=== PATIENT | female | born 1990 | race Caucasian/White ===

== ENCOUNTER → 2022-05-23 11:55 | Outpatient (BNVA) | payer OTHER, BC, SELFPAY | PROVIDERS: Visit Provider Family Medicine | DX: Z34.80 Encounter for supervision of other normal pregnancy, unspecified trimester (principal); Z51.81 Encounter for therapeutic drug level monitoring | CPT/HCPCS: 81000; 84443; 85025; 86592; 86762; 86803; 86850; 86900; 87340; 87491; 87591; 87624; 87806 ==

== ENCOUNTER → 2022-05-24 10:46 | Outpatient (BNVA) | payer OTHER, BC, SELFPAY | PROVIDERS: Visit Provider Family Medicine | DX: Z34.80 Encounter for supervision of other normal pregnancy, unspecified trimester (principal) | CPT/HCPCS: 87086 ==

== ENCOUNTER → 2022-05-27 15:54 | Outpatient (BNVA) | payer OTHER, SELFPAY | PROVIDERS: Visit Provider Family Medicine | DX: Z34.80 Encounter for supervision of other normal pregnancy, unspecified trimester (principal) | CPT/HCPCS: 76801 ==

== ENCOUNTER → 2022-06-17 11:05 | Outpatient (BNVA) | payer OTHER, BC, SELFPAY | PROVIDERS: PCP Family Medicine; Visit Provider Family Medicine | DX: Z34.80 Encounter for supervision of other normal pregnancy, unspecified trimester (principal) | CPT/HCPCS: 86850; 86900; 87806 ==

== ENCOUNTER → 2022-07-01 10:20 | Outpatient (BNVA) | payer OTHER, SELFPAY | PROVIDERS: PCP Family Medicine; Visit Provider Family Medicine | DX: Z34.80 Encounter for supervision of other normal pregnancy, unspecified trimester (principal) | CPT/HCPCS: 76805 ==

== ENCOUNTER → 2022-08-09 08:58 | Outpatient (BNVA) | payer OTHER, BC, SELFPAY | PROVIDERS: PCP Family Medicine; Visit Provider Family Medicine | DX: Z34.80 Encounter for supervision of other normal pregnancy, unspecified trimester (principal) | CPT/HCPCS: 82950 ==

== ENCOUNTER → 2022-08-13 08:22 | Outpatient (BNVA) | payer OTHER, BC, SELFPAY | PROVIDERS: PCP Family Medicine; Visit Provider Family Medicine | DX: O99.810 Abnormal glucose complicating pregnancy (principal); Z3A.00 Weeks of gestation of pregnancy not specified | CPT/HCPCS: 82951; 82952 ==

== ENCOUNTER → 2022-08-27 11:15 | Outpatient (BNVA) | payer OTHER, BC, SELFPAY | PROVIDERS: PCP Family Medicine; Visit Provider Family Medicine | DX: Z36.2 Encounter for other antenatal screening follow-up (principal) | CPT/HCPCS: 76816 ==

== ENCOUNTER → 2022-09-23 10:25 | Outpatient (BNVA) | payer OTHER, BC, SELFPAY | PROVIDERS: PCP Family Medicine; Visit Provider Family Medicine | DX: Z34.80 Encounter for supervision of other normal pregnancy, unspecified trimester (principal); Z51.81 Encounter for therapeutic drug level monitoring | CPT/HCPCS: 85025 ==

== ENCOUNTER → 2022-10-22 15:50 | Outpatient (BNVA) | payer OTHER, BC, SELFPAY | PROVIDERS: PCP Family Medicine; Visit Provider Family Medicine | DX: R30.0 Dysuria (principal); Z34.80 Encounter for supervision of other normal pregnancy, unspecified trimester | CPT/HCPCS: 81000; 87086 ==

== ENCOUNTER → 2022-10-28 09:33 | Outpatient (BNVA) | payer OTHER, BC, SELFPAY | PROVIDERS: PCP Family Medicine; Visit Provider Family Medicine | DX: O99.019 Anemia complicating pregnancy, unspecified trimester (principal); D64.9 Anemia, unspecified; Z51.81 Encounter for therapeutic drug level monitoring; Z3A.00 Weeks of gestation of pregnancy not specified | CPT/HCPCS: 87081 ==

== ENCOUNTER 2022-10-29 06:08 | Outpatient (CLI) | payer OTHER, BC, SELFPAY ==
--- NOTE | 2022-10-29 06:15 | US_ITS ---
WS: [id number] BIOPHYSICAL PROFILE AND LIMITED OB. HISTORY: RU/EFW/BPP - gestational DM - COMPARISON: 05/27/2022, 07/01/2022 and 08/27/2022. Presentation: Vertex. Cervix: Closed and normal length. Placenta: Anterior, no previa or abruption. Grade: 1 HEART: FHR of 136BPM. measurements: BPD = 8.8 cm = 35w4d; 53rd percentile HC = 31.7 cm = 35w4d; 17th percentile AC = 32.5 cm = 36w3d; 77th percentile FL = 7.1 cm = 36w1d; 58th percentile RU: 15.7 cm, single deep vertical pocket 6.7 cm. EFW: 2864g; 73rd percentile AGA by ultrasound: 36w0d ABBI by ultrasound: 11/26/2022 Biophysical profile: Parameters are as follows: Breathin Movement: 2 Tone: 2 Fluid volume: 2 US/US OB BPP wo NST [id number] IMPRESSION: 1. Biophysical profile score: 8/8. 2. Single intrauterine gestation of 36w0d with an EDC of 11/26/2022. Appropriate growth since the first trimester ultrasound. 3. Estimated weight at the 73rd percentile. Estimated weight on the most recent examination of 08/27/2022 was at the 29th percentile. 4. Abdominal circumference at the 77th percentile for gestational age. Most rec ent abdominal circumference measurement at the 21st percentile for age on 08/27. 5. Estimated weight and the abdominal circumference percentiles are trend ing toward a higher percentile. Recommend close continued ultrasound evaluation . 6. Normal amniotic fluid.
== END 2022-10-29 06:09 | disposition home or self-care (01) ==
LOC: RAD 06:08
PROVIDERS: PCP Family Medicine; Visit Provider Family Medicine
DX: O24.419 Gestational diabetes mellitus in pregnancy, unspecified control (principal)
CPT/HCPCS: 76815; 76819

== ENCOUNTER → 2022-11-07 12:54 | Outpatient (BNVA) | payer OTHER, BC, SELFPAY | PROVIDERS: PCP Family Medicine; Visit Provider Family Medicine | DX: Z34.80 Encounter for supervision of other normal pregnancy, unspecified trimester (principal); Z51.81 Encounter for therapeutic drug level monitoring; D64.9 Anemia, unspecified | CPT/HCPCS: 85025 ==

== ENCOUNTER 2022-11-19 07:36 | Outpatient (CLI) | payer BC, OTHER, SELFPAY ==
--- NOTE | 2022-11-19 08:00 | US_ITS ---
WS: [id number] BIOPHYSICAL PROFILE AND LIMITED OB. HISTORY: Measuring large for gestational age COMPARISON: 10/29/2022, 05/27/2022 Presentation: Vertex. Cervix: Closed and normal length. Placenta: Anterior, no previa or abruption. Grade: 1 HEART: FHR of 150BPM. measurements: BPD = 9.4 cm = 38w1d; 66 percentile HC = 33.3 cm = 38w0d; 21st percentile AC = 34.7 cm = 38w5d; 69th percentile FL = 7.6 cm = 39w0d; 51st percentile RU: 17.5 cm EFW: 3538g; 83rd percentile AGA by ultrasound: 38w3d ABBI by ultrasound: 11/30/2022 Measurements remain internally concordant. Appropriate growth since the first trimester ultrasound. Biophysical profile: Parameters are as follows: Breathin Movement: 2 Tone: 2 Fluid volume: 2 US/US OB limited [id number] IMPRESSION: 1. Biophysical profile score: 8/8. 2. Single intrauterine gestation of 38w3d with an EDC 11/30/2022. Appropriate g rowth since the first trimester ultrasound. 3. Estimated weight at the 83rd percentile for age. 4. Biometry percentiles are normal.
== END 2022-11-19 07:37 | disposition home or self-care (01) ==
LOC: RAD 07:38
PROVIDERS: PCP Family Medicine; Visit Provider Family Medicine
DX: O24.419 Gestational diabetes mellitus in pregnancy, unspecified control (principal); Z3A.38 38 weeks gestation of pregnancy
CPT/HCPCS: 76815

== ENCOUNTER 2022-11-22 06:39 | Inpatient (IN) | payer OTHER, BC, SELFPAY ==
--- NOTE | 2022-10-28 10:58 | ANES.PREANE2 ---
Pre-Anesthetic Assessment Height/Weight: Height 1.61 m Preop Diagnosis: IUP epidural Familial anesthetic complications: Wet tap d/t narrow spaces, ? intrathecal catheter left in place 2nd one seems to have been a positive test dose with HR abnormalities and ringing in ears Social No alcohol and No tobacco Exam alert, oriented x 3, clear to auscultation bilaterally and regular rate & rhythm Airway Mallampati: Class I Dentition: full Pulmonary None reported CV/HEM None reported None reported Hepatic None reported GI Gastroesophageal Reflux Disease Metabolic Diabetes Mellitus (gestational DM) Musc/skel None reported Neuropsych None reported Anesthetic Plan ASA status: 2 Anesthesia: Regional (specify below) Other: epidural Risk of > 500 ml blood loss (7ml/kg in children): Yes, adequate IV access and fluids planned Medications/Allergies Home Medications Medication Instructions Recorded Confirmed Last Taken Type prenat.vits,krytsin,evy-amrm-ygowp 1 tab PO DAILY 05/23/22 10/28/22 Unknown History ferrous sulfate 325 mg (65 mg 325 mg PO BID #60 tabs 09/27/22 10/28/22 Unknown Rx iron) tablet,delayed release Allergies Allergy/AdvReac Type Severity Reaction Status Date / Time No Known Allergies Allergy Unverified 05/23/22 11:40 FOR[facility] Anesthesia Surgical History Hx of tonsillectomy Hx of wisdom tooth extraction Social History Smoking and tobacco status: never smoked Alcohol intake: never 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
[2022-11-22] VITALS (65 sets, daily range): BP systolic 84–137; BP diastolic 51–84; PULSE 55–117; RESP 16–17; TEMP 36.6–36.9; O2SAT 100; BMI 30.8
[2022-11-22 09:15] LABS: Glucose Point of Care 63 mg/dL (70-110)
[2022-11-22 09:15] LABS: Glucose Point of Care 65 mg/dL (70-110)
[2022-11-22 09:35] LABS: Basophils % 0.1 %; Eosinophils # 0.1 10^3/uL (0.0-0.8); Eosinophils % 0.8 %; Hematocrit 35.6 % (37.0-47.0); Hemoglobin 10.6 g/dL (11.5-15.3); Lymphocytes # 1.6 10^3/uL (0.8-4.8); Lymphocytes % 21.8 %; Mean Corpuscular HGB Conc 29.8 g/dL (30.0-36.0); Mean Corpuscular Hemoglobin 26.1 pg (28.0-34.0); Mean Corpuscular Volume 87.7 fl (81-99); Mean Platelet Volume 11.1 fL (7.4-10.4); Monocytes # 0.5 10^3/uL (0.2-0.9); Neutrophils # 5.28 10^3/uL (1.8-7.7); Nucleated Red Blood Cells % 0 %; Platelet Count 173 10^3/cmm (130-400); Red Blood Count 4.06 10^6/uL (4.1-5.3); Red Cell Distribution Width 19.2 % (12.1-15.1); White Blood Count 7.5 10^3/uL (4.0-10.0)
[2022-11-22] MEDS: dextrose 5%-lactated ringers 1,000 ML 125 ML IV (09:38)
[2022-11-22] MEDS: oxytocin 30 UNIT/500 ML BAG IV (09:39)
[2022-11-22] MEDS: lactated ringers 1,000 ML 999 ML IV ×2 (10:32→17:16)
--- NOTE | 2022-11-22 11:51 | PM.HP ---
Providers/Chief Complaint Admitting Physician: Kamari Landers MD Primary Care Provider: Kamari Landers MD Chief Complaint: INDUCTION OF LABOR History of Present Illness Joesph Gonzáles is a 32 year old @ 39.1 weeks by 13 wk US consistent with estimated LMP based on conception. Preg c/b h/o gDM, h/o LGA , elevated 1-hr GTT with normal 3-hr GTT - following glucose at home - likely gDM, anemia The patient presents to labor and delivery for an elective scheduled induction of labor secondary to history of large for gestational age infant as well as borderline blood sugar levels. The patient has been feeling well. She denies any chest pains, shortness of breath, nausea, vomiting, diarrhea, constipation, fever, dysuria, leakage of fluid, vaginal bleeding. The patient is GBS negative. 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 Reproductive History: : 4 Vitals/I&O/Wt Last Vital Signs Pulse 96 11/22/22 11:48 BP 126/82 11/22/22 11:48 Pulse Ox 100 11/22/22 11:45 O2 Del Method 11/22/22 10:06 11/21/22 11/22/22 11/22/22 22:59 06:59 14:59 Intake Total 119.050 / 119.050 Balance 119.050 / 119.050 Weight last 48 hrs Weight 174 lb Physical Exam Narrative: General: Alert and oriented x3 Eyes: Pupils equal round and reactive to light and accommodation Mouth: Mucous membranes moist, pharynx non-erythematous Cardiac: Regular rate and rhythm without murmurs Lungs: Clear to auscultation bilaterally without wheezes, crackles or rhonchi Abdomen: Soft, non-tender, fundus consistent with gestational age Extremities: Trace edema in the bilateral lower extremities Data 11/22/22 09:00 A&P Assessment and plan (1) Supervision of normal intrauterine in multigravida: The patient is doing well overall at this time. She is eder every 1 to 3 minutes. She has been started on IV Pitocin for induction of labor. Her GBS is negative. heart tones are currently in the mid 130s with moderate variability good accelerations. All questions were answered. The patient is in agreement with current plan of care. Continue with routine intrapartum management. Attestations Medical Necessity Statement*: The patient will be here for greater than 2 midnights due to routine intrapartum and management of labor and delivery. Coding Level of Care Code Acute Code for Chg Fwd Diagnoses Supervision of normal intrauterine in multigravida Z34.80
--- NOTE | 2022-11-22 12:32 | P.ANESASSM_ITS ---
Pre-Anesthetic Assessment Height/Weight: Height 1.6 m Weight 78.925 kg Pulse BP Pulse Ox O2 Del Method 82 123/79 100 11/22/22 12:10 11/22/22 12:10 11/22/22 11:50 11/22/22 10:06 Preop Diagnosis: IUP Familial anesthetic complications: none Was Beta Beth taken within 24 hours: N/A Was Clonidine taken within 24 hours: N/A Social No alcohol and No tobacco Exam alert, oriented x 3, clear to auscultation bilaterally and regular rate & rhythm Airway Submandibular: within normal limits Cervical ROM: within normal limits Mallampati: Class II Dentition: full CV/HEM Anemia Metabolic Diabetes Mellitus (gestational) Anesthetic Plan ASA status: 2 Anesthesia: Regional (specify below) (Labor epidural) Medications/Allergies Home Medications Medication Instructions Recorded Confirmed Last Taken Type prenat.vits,krystin,wgk-dqzp-pvsxr 1 tab PO DAILY 05/23/22 11/20/22 Unknown History ferrous sulfate 325 mg (65 mg 325 mg PO BID #60 tabs 09/27/22 11/20/22 Unknown Rx iron) tablet,delayed release Allergies Allergy/AdvReac Type Severity Reaction Status Date / Time No Known Allergies Allergy Unverified 05/23/22 11:40 Current Medications Generic Name Dose Route Start Last Admin Trade Name Freq PRN Reason Stop Dose Admin Oxytocin 30 unit in 500 mls @ 2 mls/hr 11/22/22 09:30 11/22/22 10:55 Pitocin IV 10 milliunit/min .Q24H EDISON 10 mls/hr Titration Protocol 2 MILLIUNIT/MIN Dextrose/Lactated Ringer's 1,000 mls @ 125 mls/hr 11/22/22 09:30 11/22/22 10:33 Dextrose 5%-Lactated Ringers IV 0 mls/hr .Q8H EDISON Infusion Lactated Ringer's 1,000 mls @ 999 mls/hr 11/22/22 09:25 11/22/22 10:32 Lactated Ringers IV 999 mls/hr .Q1H1M PRN Administration See label comments PFSH Anesthesia Surgical History Hx of tonsillectomy Hx of wisdom tooth extraction Social History Smoking and tobacco status: never smoked Alcohol intake: never 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 : 4 Data Anesthesia 11/22/22 09:00 Short CBC 11/22/22 Range/Units 09:00 WBC 7.5 (4.0-10.0) 10^3/uL Hgb 10.6 L (11.5-15.3) g/dL Hct 35.6 L (37.0-47.0) % MCV 87.7 (81-99) fl Plt Count 173 (130-400) 10^3/cmm Neut % (Auto) 70.0 % Neut # (Auto) 5.28 (1.8-7.7) 10^3/uL Cardiac Studies: No Data to Display Anesthesia Procedures Epidural Time Out Performed: Yes Consents Signed: Procedure Consent Consent: requested by attending/covering physician, from patient, risks and benefits reviewed and patient agrees to proceed Lumbar Level: L3-L4 Epidural position: sitting Epidural procedure: sterile prep of area, 1% lidocaine to numb the area, 18 g needle, neg for paresthesia, test dose given (3mls of 1% lido), 0.2% Ropivacaine bolus ml, placed PCEA, no systemic response, sterile dressing applied and 0.2% Ropiavacaine @ mls/hr (13) Additional Comments: FLORES at 4cm, cath at 9cm, bolused 5mls of 0.2% rop
[2022-11-22 13:52] LABS: Glucose Point of Care 85 mg/dL (70-110)
[2022-11-22] MEDS: ePHEDrine 50 mg/mL Inj 10 MG IVP ×3 (17:24→17:48)
[2022-11-22 17:39] LABS: Glucose Point of Care 110 mg/dL (70-110)
--- NOTE | 2022-11-22 20:13 | PM.DELIVERY ---
Delivery Note: Date of delivery: November 22, 2022 Pre-delivery diagnoses: 1. Intrauterine at 39.1 weeks gestation 2. Gestational diabetes - diet-controlled 3. History of LGA infant 4. Anemia Post-delivery diagnoses: 1. Intrauterine status post spontaneous vaginal delivery at 39.1 weeks gestation 2. Gestational diabetes - diet-controlled 3. History of LGA infant 4. Anemia 5. Delivery of healthy infant female weighing 7 pounds 15 ounces with Apgars of 9 and 10 Procedure: Spontaneous vaginal delivery Delivering Physician: Kamari Landers MD Estimated blood loss (mL): 100 Findings: 1. Healthy female weighing 7 pounds 15 ounces with Apgars of 9 and 10 2. Intact placenta with central umbilical cord insertion site Pre-Delivery Course: Joesph Gonzáles is a 32 year old G4 now P4 status post spontaneous vaginal delivery @ 39.1 weeks by 13 wk US consistent with estimated LMP based on conception. Preg was complicated by history of gDM, h/o LGA infant, elevated 1-hr GTT with normal 3-hr GTT - following glucose at home - likely gDM, anemia The patient presented to labor and delivery for an elective scheduled induction of labor secondary to history of large for gestational age infant as well as borderline blood sugar levels. The patient was started on IV Pitocin on the morning of 11/22/2022. She made gradual change and received a laboring epidural. The patient's blood sugars were in the normal range throughout her labor process. Following her epidural, she did have a couple of episodes of low blood pressure that were treated with ephedrine. The epidural was turned down and she responded well to this. By the afternoon of 11/22/2022, the 's head was well applied and at 1906 on 11/22/2022 AROM was performed. Clear fluid was noted. The patient then made more rapid change and was complete by 1950 on 11/22/2022. Delivery: The patient began pushing at 1951 on 11/22/2022. The patient pushed well and the infant delivered in the OA position at 1956 on 11/22/2022. There was a nuchal cord that was reduced prior to delivery of the rest of the infant. The left shoulder was the anterior shoulder and it delivered with ease. The rest of the infant delivered without complication. The 's mouth and nose were bulb suctioned by myself and the infant was placed on the mother's chest where the nurses were waiting to care for her. The cord was clamped by myself after approximately 1 minute. Cord blood was obtained. The cord was then drained of blood. Traction was placed on the umbilical cord and the uterus was massaged. The placenta delivered at 20:01. The placenta was noted to be intact with a central umbilical cord insertion site. The uterus was massaged and was noted to be firm and midline. The vaginal wall was inspected and no lacerations were noted. There was a small abrasion noted in the lower vaginal wall. This did not need suturing. The cervix was inspected and no lacerations were noted. Currently both the mother and infant are doing well. History History History 4 Term 4 0 Miscarriages/Ectopic 0 Living Children 4 Past Pregnancies Del. Date GA/Weeks Outcome Route Wt Inf Gender Labor Lgth Comp. Anesthesia Location 05/25/14 39 live - full term Vaginal 9 lb 2 oz Male [address] [facility] [place] 06/05/17 39 live - full term Vaginal 8 lb 2 oz Male 8 hours [facility] 04/21/20 39 live - full term Vaginal 8 lb 4 oz Male 6-8 hours [facility] [place] 11/22/22 39 live - full term Vaginal 7 lb 15 oz [facility] Delivery Date: 05/25/14 Last Updated by: Kamari Landers MD GDM - diet controlled, OP initially. Delivery Date: 06/05/17 Last Updated by: Kamari Landers MD No complications Delivery Date: 04/21/20 Last Updated by: Kamari Landers MD gDM - diet controlled A&P Assessment and plan (1) Spontaneous vaginal delivery: Coding Level of Care Code Acute Code for Chg Fwd Diagnoses Spontaneous vaginal delivery O80
[2022-11-22] MEDS: oxytocin 30 UNIT/500 ML BAG 60 UNIT IV (20:55)
[2022-11-23] VITALS (11 sets, daily range): BP systolic 108–133; BP diastolic 56–83; PULSE 83–103; RESP 16; TEMP 36.1–36.9; O2SAT 97
[2022-11-23] MEDS: docusate sodium 100 mg Capsule PO ×2 (08:19→20:40)
[2022-11-23] MEDS: prenatal vitamin Capsule 1 CAP PO (08:19)
[2022-11-23] MEDS: ibuprofen 800 mg tablet PO ×3 (08:20→20:40)
[2022-11-23 09:24] LABS: Hematocrit 33.9 % (37.0-47.0); Hemoglobin 10.1 g/dL (11.5-15.3); Mean Corpuscular HGB Conc 29.8 g/dL (30.0-36.0); Mean Corpuscular Hemoglobin 26.2 pg (28.0-34.0); Mean Corpuscular Volume 87.8 fl (81-99); Mean Platelet Volume 11.1 fL (7.4-10.4); Platelet Count 159 10^3/cmm (130-400); Red Blood Count 3.86 10^6/uL (4.1-5.3); Red Cell Distribution Width 19.2 % (12.1-15.1)
--- NOTE | 2022-11-23 15:36 | PM.DCS ---
Discharge Providers Date of Admission: 11/22/22 06:39 Date of Discharge: November 23, 2022 Attending Provider at Admission: Kamari Landers MD Attending Provider at Discharge: Kamari Landers MD Primary Care Provider: Kamari Landers MD Diagnoses at Discharge Discharge Diagnosis (1) Spontaneous vaginal delivery: Status: Acute Other Information Additional DC diagnoses/information: 1.? Intrauterine status post spontaneous vaginal delivery at 39.1 weeks gestation 2.? Gestational diabetes - diet-controlled 3.? History of LGA 4.? Anemia 5.? Delivery of healthy female weighing 7 pounds 15 ounces with Apgars of 9 and 10? Reason for Visit Reason for Visit: INDUCTION OF LABOR Brief History: Joesph Gonzáles is a 32 year old G4 now P4 status post spontaneous vaginal delivery @ 39.1 weeks by 13 wk US consistent with estimated LMP based on conception. Preg was complicated by history of gDM, h/o LGA , elevated 1-hr GTT with normal 3-hr GTT - following glucose at home - likely gDM, anemia The patient presented to labor and delivery for an elective scheduled induction of labor secondary to history of large for gestational age as well as borderline blood sugar levels. Hospital Course Hospital Course The patient was started on IV Pitocin on the morning of 11/22/2022.? She made gradual change and received a laboring epidural.? The patient's blood sugars were in the normal range throughout her labor process.? Following her epidural, she did have a couple of episodes of low blood pressure that were treated with ephedrine.? The epidural was turned down and she responded well to this.? By the afternoon of 11/22/2022, the infant's head was well applied and at 190 on 11/22/2022 AROM was performed.? Clear fluid was noted.? The patient then made more rapid change and was complete by 1950 on 11/22/2022. The patient began pushing at 1951 on 11/22/2022.? The patient pushed well and the infant delivered in the OA position at 1956 on 11/22/2022.? There was a nuchal cord that was reduced prior to delivery of the rest of the .? The left shoulder was the anterior shoulder and it delivered with ease.? The rest of the delivered without complication.? The infant's mouth and nose were bulb suctioned by myself and the infant was placed on the mother's chest where the nurses were waiting to care for her.? The cord was clamped by myself after approximately 1 minute.? Cord blood was obtained.? The cord was then drained of blood.? Traction was placed on the umbilical cord and the uterus was massaged.? The placenta delivered at 20:01.? The placenta was noted to be intact with a central umbilical cord insertion site.? The uterus was massaged and was noted to be firm and midline.? The vaginal wall was inspected and no lacerations were noted.? There was a small abrasion noted in the lower vaginal wall.? This did not need suturing.? The cervix was inspected and no lacerations were noted.? the patient has done very well. Her bleeding is decreasing well. Her hemoglobin dropped from 10.6 to 10.1. Her pain is minimal. She is ambulating, voiding, passing gas and tolerating food by mouth. She is showing no signs of complications. The patient requests to be discharged home at 24 hours after delivery if possible. Routine discharge instructions were discussed. All questions were answered. We will plan to discharge home this evening as long as everything goes well throughout the day. Physical Exam Narrative: General: Alert and oriented x3 Cardiac: Regular rate and rhythm without murmurs Lungs: Clear to auscultation bilaterally without wheezes, crackles or rhonchi Abdomen: Soft, mild tenderness over uterus. The uterus is firm and 2 cm below the umbilicus. Extremities: Trace edema in the bilateral lower extremities Urinary Catheter Management: Cuellar: Cath Placed During This Visit: yes, but has since been removed by the nurse Reason for Continuing Indwelling Catheter: Decision to DC Catheter Urinary Catheter Date of Insertion: 11/22/22 Urinary Catheter Time of Insertion: 12:48 Date Urinary Catheter Removed: 11/22/22 Time Urinary Catheter Discontinued: 19:51 Discharge Data Studies Completed and Pending Laboratory Results WBC 11.0 10^3/uL (4.0-10.0) H 11/23/22 08:30 RBC 3.86 10^6/uL (4.1-5.3) L 11/23/22 08:30 Hgb 10.1 g/dL (11.5-15.3) L 11/23/22 08:30 Hct 33.9 % (37.0-47.0) L 11/23/22 08:30 MCV 87.8 fl (81-99) 11/23/22 08:30 MCH 26.2 pg (28.0-34.0) L 11/23/22 08:30 MCHC 29.8 g/dL (30.0-36.0) L 11/23/22 08:30 RDW 19.2 % (12.1-15.1) H 11/23/22 08:30 Plt Count 159 10^3/cmm (130-400) 11/23/22 08:30 MPV 11.1 fL (7.4-10.4) H 11/23/22 08:30 Neut % (Auto) 70.0 % 11/22/22 09:00 Lymph % (Auto) 21.8 % 11/22/22 09:00 [place] % (Auto) 7.0 % 11/22/22 09:00 Eos % (Auto) 0.8 % 11/22/22 09:00 Baso % (Auto) 0.1 % 11/22/22 09:00 Neut # (Auto) 5.28 10^3/uL (1.8-7.7) 11/22/22 09:00 Lymph # (Auto) 1.6 10^3/uL (0.8-4.8) 11/22/22 09:00 [place] # (Auto) 0.5 10^3/uL (0.2-0.9) 11/22/22 09:00 Eos # (Auto) 0.1 10^3/uL (0.0-0.8) 11/22/22 09:00 Baso # (Auto) 0.0 10^3/uL (0.0-0.1) 11/22/22 09:00 Nucleated RBC % (auto) 0 % 11/22/22 09:00 Nucleated RBCs # 0.0 /100WBC 11/22/22 09:00 POC Glucose 110 mg/dL (70-110) 11/22/22 17:11 Vitals Last Vital Signs Temp 98.4 F 11/23/22 09:47 Pulse 91 11/23/22 09:47 Resp 17 11/22/22 20:13 BP 115/68 11/23/22 09:47 Pulse Ox 100 11/22/22 11:50 O2 Del Method 11/22/22 10:06 Discharge Plan Discharge Patient Disposition: Home Condition: Good Prescriptions: Continued prenat.vits,krystin,[id number]-mowdj Tablet 1 tab PO DAILY ferrous sulfate 325 mg (65 mg iron) tablet,delayed release (DR/EC) 325 mg PO BID Qty: 60 2RF Discharge Orders: Discharge Order (Routine); Ordered 11/23/22 Ordered By: Kamari Landers Referrals: Kamari Landers MD [Primary Care Provider] - 6 Weeks Discharge Diet: Regular Discharge Activity: Increase activity as tolerated Patient Instructions: Opioid Safety Activity Restrictions/Additional Instructions: Nothing per vagina for 6 weeks. Discharge Attestations Time Spent in Discharge Care*: less than 30 min Quality Metrics Clinical Quality Measures [ No reported AMI, CVA or VTE this stay] Coding Level of Care Code Acute Code for Chg Fwd Diagnoses Spontaneous vaginal delivery O80
--- NOTE | 2022-11-23 18:34 | ANE.PACU2 ---
Inpatient post-anesthesia follow up: Airway intact: Yes Vital signs: Temperature 97.5 F Pulse Rate 83 Respiratory Rate 17 Blood Pressure 115/63 Pulse Oximetry 100 Oxygen Delivery Me thod Room Air Oxygen Flow Rate Fraction of Inspir ed Oxygen Hydration adequate: Yes Nausea and vomiting: No Pain level: 2 Mental status: Baseline
== END 2022-11-23 21:00 | disposition home or self-care (01) | DRG 807 ==
PROVIDERS: Admitting Provider Family Medicine; PCP Family Medicine; Visit Provider Family Medicine
DX: O24.420 Gestational diabetes mellitus in childbirth, diet controlled (principal); Z37.0 Single live birth; O99.02 Anemia complicating childbirth; D64.9 Anemia, unspecified; O69.81X0 Labor and delivery complicated by cord around neck, without compression, not applicable or unspecified; O75.89 Other specified complications of labor and delivery; R03.1 Nonspecific low blood-pressure reading; T50.995A Adverse effect of other drugs, medicaments and biological substances, initial encounter; Y92.230 Patient room in hospital as the place of occurrence of the external cause; Z87.59 Personal history of other complications of pregnancy, childbirth and the puerperium; Z3A.39 39 weeks gestation of pregnancy
CPT/HCPCS: 36415; 36416; 51702; 59025; 59409; 82962; 85025; 85027; 87081; J2590; J2795; J7120; J7121

== ENCOUNTER → 2023-02-20 08:35 | Outpatient (BNVA) | payer OTHER, BC, SELFPAY | PROVIDERS: PCP Family Medicine; Visit Provider Family Medicine | DX: O24.419 Gestational diabetes mellitus in pregnancy, unspecified control (principal) | CPT/HCPCS: 82951 ==